=== PATIENT | female | born 1995 | race African-American/Black ===

== ENCOUNTER 2024-08-25 11:03 | Day surgery (SDC) | payer OTHER ==
[2024-08-25] VITALS (9 sets, daily range): BP systolic 105–139; BP diastolic 63–101; PULSE 64–76; TEMP 97.3–98
[~2024-08-25] VITALS: Ht 167.6 cm; Wt 63.6 kg
[2024-08-25] MEDS ORDERED: Ondansetron 4 MG/2 ML VIAL IV ONE (12:00)
[2024-08-25] MEDS ORDERED: Ketorolac 30 MG/ML VIAL IV ONE (12:00)
[2024-08-25] MEDS ORDERED: NS 1,000 ML IV ONE (12:00)
[2024-08-25 12:04] LABS: BASO # 0.1 K/mm3 (0.0-0.2); BASO % 0.7 % (0.0-2.0); EOS % 0.3 % (0.0-4.0); GRAN # 5.3 K/mm3 (1.4-6.5); GRAN % 76.7 % (42.2-75.2); HEMATOCRIT 37.5 % (37.0-47.0); HEMOGLOBIN 13.4 g/dl (12.5-16.0); LYMPH # 1.3 K/mm3 (1.2-3.4); LYMPH % 18.5 % (20.0-51.0); MEAN CELL VOLUME 90 fl (80.0-100.0); MEAN CORPUSCULAR HEMOGLOBIN 32 pg (27-31); MEAN CORPUSCULAR HGB CONC 36 g/dl (33.0-37.0); MONO # 0.2 K/mm3 (0.1-0.6); MONO % 3.4 % (1.7-9.3); PLATELET COUNT 284 K/mm3 (130-400); RED BLOOD COUNT 4.16 M/mm3 (4.10-5.30); REDCELL DISTRIBUTION WIDTH-CV 11.9 % (11.5-14.5)
[2024-08-25 12:20] LABS: ALBUMIN 4.1 g/dL (3.5-5.0); BILIRUBIN,TOTAL 0.4 mg/dL (0.2-1.2); C-REACTIVE PROTEIN 0.04 mg/dL (0.00-0.50); CALCIUM 9.3 mg/dL (8.4-10.2); CREATININE, serum 0.82 mg/dL (0.57-1.11); TOTAL PROTEIN 7.4 g/dl (6.2-8.1)
[2024-08-25 12:44] LABS: PH 7.5 (5.0-8.5); URINE APPEARANCE CLEAR (CLEAR/HAZY); URINE BLOOD 1+ (NEGATIVE); URINE COLOR YELLOW (YELLOW); URINE GLUCOSE NEGATIVE (NEGATIVE); URINE KETONE TRACE (NEGATIVE); URINE NITRATE NEGATIVE (NEGATIVE); URINE PROTEIN(semi-quant) TRACE (NEGATIVE)
[2024-08-25 13:04] LABS: COLLECTION METHOD CLEAN CATCH
[2024-08-25] MEDS ORDERED: HYDROmorphone 0.5 MG/0.5 ML SYRINGE IV ONE (14:00)
[2024-08-25] MEDS ORDERED: Rocuronium 50 MG/5 ML Multi-Dose VIAL ONE (15:01)
[2024-08-25] MEDS ORDERED: fentaNYL 50 MCG/ML 5 ML VIAL ONE (15:02)
[2024-08-25] MEDS ORDERED: Ondansetron 4 MG/2 ML VIAL ONE (15:03)
[2024-08-25] MEDS ORDERED: Ketorolac 30 MG/ML VIAL ONE (15:03)
[2024-08-25] MEDS ORDERED: dexAMETHasone 10 MG/ML VIAL ONE (15:03)
[2024-08-25] MEDS ORDERED: Lidocaine PF 2% (20 MG/ML) 5 ML VIAL ONE (15:05)
[2024-08-25] MEDS ORDERED: fentaNYL 50 MCG/ML 2 ML VIAL ONE (16:13)
[2024-08-25] MEDS ORDERED: HYDROmorphone 1 MG/1 ML SYRINGE [PACU/SDC ONLY] IV PRN (17:00)
[2024-08-25] MEDS ORDERED: Ondansetron 4 MG/2 ML VIAL IV PRN ×2 (17:00→17:15)
[2024-08-25] MEDS ORDERED: fentaNYL 50 MCG/ML 1 ML SYRINGE/VIAL [PACU/SDC ONLY] IV PRN (17:00)
[2024-08-25] MEDS ORDERED: droPERidol 2.5 MG/ML 2 ML VIAL IV PRN (17:00)
[2024-08-25] MEDS ORDERED: LR 1,000 ML IV SCH (17:15)
[2024-08-25] MEDS ORDERED: Naloxone 0.4 MG/ML VIAL IV PRN (17:15)
[2024-08-25] MEDS ORDERED: oxyCODONE 5 MG TAB PO PRN (17:15)
[2024-08-25] MEDS ORDERED: Acetaminophen 500 MG TAB PO SCH (17:15)
--- NOTE | 2024-08-25 18:20 | NUR ---
PT UMBILICAL LAP SITE BEGAN BLEEDING, THIS RN REPLACED BANDAID WITH A 2X2 AND BANDAID FOR EXTRA PRESSURE. LOWER INCISION SITE HAS A DRESSING THAT DOES SHOW SHADOWING OF BLOOD, THIS RN NOTED THE EXTERIOR EDGES TO OBSERVE FOR ANY MORE BLEEDING.
[2024-08-25] MEDS ORDERED: IBU800 M1 PO (18:36)
--- NOTE | 2024-08-25 19:26 | NUR ---
Pt requests and receives Oxycodone for pain a 4 on a 1-10 scale. Pt discusses concerns about increased activity cousing increased pain when she goes home, Stating "I'm in the [employer] and is a lot of activity" Also has questions about discharge medication stating "It looks like my pharmacy is closed." Explained to pt that we wouldn't discharge her tonight if pain wasn't in control and she couldn't picker/puller her medications. Pt asks "how much does it cost to stay the night. Informed pt that I'm unaware of those charges. Told pt that we could discharge her @ 2330 and give her her medication right before she left. Informed pt that she would have to call [facility] in am to establish care, set a 2 wk post-op visit and get a work/school release.
[2024-08-25] MEDS ORDERED: Docusate Sodium 100 MG CAP PO SCH (21:00)
[2024-08-25] MEDS ORDERED: Ibuprofen 800 MG TAB PO SCH (23:01)
== END 2024-08-25 20:20 | disposition home or self-care (01) ==
LOC: COL.ER 11:03 → SDCO 11:03 → EDSTATUS 16:00 → OB 18:15 → SDCO 20:20
PROVIDERS: Nurse Practitioner
DX: D27.0 Benign neoplasm of right ovary (principal); N83.511 Torsion of right ovary and ovarian pedicle
CPT/HCPCS: OP; J1100; J1170; J1885; J2405; J2704; J3010; J7030